=== PATIENT | female | born 1965 | race Two or more races ===

== ENCOUNTER 2016-12-31 14:29 | Emergency (ER) | payer OTHER ==
[~2016-12-31] VITALS: Ht 154.9 cm; Wt 95.3 kg
[2016-12-31 14:36] VITALS: BP 151/89
[2016-12-31] MEDS ORDERED: KETOROLAC TROMETH 60MG/2ML VIAL IM ONE (15:30)
== END 2016-12-31 16:39 | disposition home or self-care (01) ==
LOC: ER 14:41
DX: S39.012A Strain of muscle, fascia and tendon of lower back, initial encounter (principal); M51.36 Other intervertebral disc degeneration, lumbar region; W01.0XXA Fall on same level from slipping, tripping and stumbling without subsequent striking against object, initial encounter; Y93.89 Activity, other specified; Y92.89 Other specified places as the place of occurrence of the external cause; Y99.8 Other external cause status
CPT/HCPCS: 72100; 96372; 99284; J1885